=== PATIENT | female | born 1945 | race Caucasian/White ===

== ENCOUNTER 2016-08-10 04:50 | Day surgery (SDC) | payer MEDICARE, OTHER ==
[2016-08-06 10:44] LABS: HEMATOCRIT 37.8 % (36.0-48.0); MCHC 31.7 g/dL (31.0-37.0); MCV 94.5 fL (80.0-100.0); RDW 14.9 % (11.5-14.5)
[~2016-08-10] VITALS: Ht 165.1 cm; Wt 76.2 kg
[~2016-08-10 04:50] MED LIST: ASPIRIN EC81 M1 PO; ATIVAN0.5 MG PO; CELEBREX200 MG PO; DOC-Q-LACE100 MG; EXFORGE 5-320 M1 TAB PO; FOLIC ACID1 MG PO; FUROSEMIDE20 MG PO; LEVOXYL25 MCG PO; LOVAZA1 G PO; METHOTREXATE2.5 MG PO; NEXIUM40 MG PO; PAXIL20 MG PO; SPIRIVA18 MCG; SPIRIVA18 MCG INH; SYMBICORT 16010.2 GM INH; VENTOLIN HFA18 GM INH; VITAMIN D250000 UNIT PO; ZETIA10 MG PO
[2016-08-10 05:45] VITALS: BP 116/59; Ht 165.1 cm; Wt 76.2 kg
[2016-08-10] MEDS ORDERED: HYDROCODONE-APA1 TAB PO (07:34)
--- NOTE | 2016-08-10 08:40 | NUR ---
XRAY HERE TO DO SCAN OF CHEST OFF UNIT PER BED
--- NOTE | 2016-08-10 09:46 | NUR ---
0845 IV DC WITH CATHER TIP INTACT
--- NOTE | 2016-08-19 08:03 | OP ---
PATIENT NAME: Conor CARRILLO JANUARY MEDICAL RECORD: [id number] :44 LOCATION:D[facility] ADMISSION DATE: SURGEON: MARGUERITE TOMLINSON MD DATE OF OPERATION: 08/10/2016 PREOPERATIVE DIAGNOSIS: Left knee medial meniscus tear. POSTOPERATIVE DIAGNOSES: Left knee medial meniscus tear plus lateral meniscus tear, plus grade III-IV chondromalacia patellofemoral joint, medial femoral condyle and medial tibial plateau. PROCEDURE PERFORMED: Left knee partial medial and lateral meniscectomy. SURGEON: Alvaro Tomlinson MD ANESTHESIA: General. TOURNIQUET: Not used. ESTIMATED BLOOD LOSS: Minimal. CONDITION: She tolerated the procedure well and was transferred to the recovery room in stable condition at the termination of the procedure. INDICATIONS: This is a 71-year-old female, who has been having significant pain in her knee. She has an MRI consistent with a medial meniscus tear. We had discussed options including the fact that a knee arthroscopy may not resolve her problems. She understood and wished to proceed. OPERATIVE REPORT: The patient was taken to the operating room and placed in supine position. General anesthesia was obtained. She did receive Ancef per protocol preoperatively. Her left knee was confirmed to be the correct knee, it was prepped and draped in normal fashion. Portal sites were marked and injected with 0.25% Marcaine with epinephrine. I established an anterolateral portal for the scope and inflow, superior medial portal for the outflow. The patellofemoral joint was inspected. She had a fairly significant amount of exposed bone on the backside of the patella. Coming down the medial gutter into the medial joint line, the medial joint showed fairly significant chondromalacia of the medial femoral condyle as well as off the medial tibial plateau. I established an anterior medial portal under direct visualization, probing the back area. She had a very large flap tear in the posterior medial meniscus. This was debrided with a straight biter, which was essentially back to the rim of the meniscus. This was only in the back corner. I also debrided some of the cartilage off of the condyle. At the notch, the ACL and PCL were notably intact. Laterally in a [id number] position, she did have a radial tear. This one was certainly less significant, she did have some grade II-III chondromalacia on the lateral side. No exposed bone. Once this was accomplished, I proceeded to check to make sure there were no fragments in the knee, following which she was irrigated and then closed with 3-0 Prolene injected with 5 cc of Duramorph and 10 cc of Marcaine plain. She tolerated this well, was awakened and transferred to recovery room in stable condition at termination of procedure. TRANSINT:[id number] Voice Confirmation ID: [id number] DOCUMENT ID: [id number] OPERATIVE REPORT [id number] Conor CARRILLO GORDON TROY MD at 0803 CC: [id number] DICTATION DATE: 08/10/16 0738 SURGICAL GARMENT ASSEMBLER: 08/10/16 0828 [facility] [place] 08/10/16 [id number] [place] [address]
== END 2016-08-10 09:15 | disposition home or self-care (01) ==
LOC: D.OPS 04:50 → D.PAN 07:00 → D.OPS 07:00
PROVIDERS: Anesthesiology
DX: S83.242A Other tear of medial meniscus, current injury, left knee, initial encounter (principal); S83.282A Other tear of lateral meniscus, current injury, left knee, initial encounter; M94.262 Chondromalacia, left knee

== ENCOUNTER → 2016-10-04 07:24 | Outpatient (CLI) | payer MEDICARE, OTHER ==
[2016-08-10 05:45] VITALS: BMI 28.0
[~2016-10-04 07:24] MED LIST changes: +HYDROCODONE-APA1 TAB PO
== END | disposition home or self-care (01) ==
LOC: D.CT 07:24
DX: R79.1 Abnormal coagulation profile (principal)

== ENCOUNTER → 2016-11-26 07:29 | Outpatient (CLI) | payer MEDICARE, OTHER ==
[2016-08-10 05:45] VITALS: BMI 28.0
== END ==
LOC: D.MRI 07:29
DX: M54.5 Low back pain (principal)

== ENCOUNTER 2016-12-12 20:45 | Inpatient (IN) | payer MEDICARE, OTHER ==
[~2016-12-12] VITALS: Ht 165.1 cm; Wt 81.6 kg
[2016-12-12 22:22] LABS: BASOPHILS 0.3 % (0-2); EOSINOPHILS 0.7 % (0-7); HEMATOCRIT 38.3 % (36.0-48.0); HEMOGLOBIN 11.9 g/dL (12-16); IMMATURE GRANULOCYTES 0.3 % (0-5); LYMPHOCYTES 10.3 % (15-50); MCH 26.7 pg (26.0-34.0); MCHC 31.1 g/dL (31.0-37.0); MCV 85.9 fL (80.0-100.0); MEAN PLATELET VOLUME 8.8 fL (7.4-10.4); MONOCYTES 4.2 % (2-11); NEUTROPHILS 84.2 % (40-80); PLATELET COUNT 293 10x3/uL (130-400); RBC 4.46 10x6/uL (4.00-5.40); RDW 16.2 % (11.5-14.5); WBC 14.2 10x3/uL (4.8-10.8)
[2016-12-12 22:26] LABS: APPEARANCE CLEAR (CLEAR); COLOR YELLOW (YELLOW)
[2016-12-12 22:27] LABS: BILIRUBIN NEGATIVE (NEGATIVE); GLUCOSE NEGATIVE (NEGATIVE); KETONE NEGATIVE (NEGATIVE); LEUKOCYTE ESTERASE NEGATIVE (NEGATIVE); NITRITE NEGATIVE (NEGATIVE); PROTEIN NEGATIVE (NEGATIVE); SPECIFIC GRAVITY 1.015 (1.005-1.020); UROBILINOGEN NORMAL (NORMAL)
[2016-12-12 22:36] LABS: ALBUMIN 3.9 g/dL (3.4-5.0); ALKALINE PHOSPHATASE 164 U/L (46-116); ALT (SGPT) 27 U/L (10-68); CALC OSMOLALITY 287 mosm/kg (275-300); CALCIUM 9.7 mg/dL (8.5-10.1); CARBON DIOXIDE 30.3 mmol/L (21.0-32.0); CHLORIDE - SERUM 104 mmol/L (98-107); GLUCOSE 122 mg/dL (74-106); POTASSIUM - SERUM 4.3 mmol/L (3.5-5.1); PROTEIN - SERUM 7.9 g/dL (6.4-8.2); SODIUM 143 mmol/L (136-145); UREA NITROGEN 18 mg/dL (7-18); eGFR NON AFRICAN AMERICAN 58 mL/min (90-120)
[2016-12-12 23:50] LABS: AMYLASE - SERUM 47 U/L (25-115); LIPASE 106 U/L (73-393); TROPONIN-I < 0.017 ng/mL (0.000-0.060)
[2016-12-13 04:00] VITALS: BP 159/61
[2016-12-13 04:23] VITALS: BP 132/64
--- NOTE | 2016-12-13 08:43 | NUR ---
PT SEEN AND ASSESSED. COMPLAINTS OF PAIN TO LLQ-MORHPINE GIVEN. RESING QUIETLY AFTERWARDS. ZALDIVAR NOTED. BOWEL SOUNDS NON AUDIBLE-STATES NO NAUSEA THO. NG TO RIGHT NARE DRAINING BROWNISH-RED LIQUID TO LIS. CALL LIGHT IN PLACE. BED ALARM ON FOR SAFETY
[2016-12-13 12:00] VITALS: BP 147/53
[2016-12-13 14:21] VITALS: Ht 165.1 cm; Wt 81.6 kg
[2016-12-13 16:56] VITALS: BP 118/55
[2016-12-13 18:00] VITALS: BP 140/52
--- NOTE | 2016-12-13 20:30 | NUR ---
REC'D PATIENT LYING IN BED RESTING. WILL ADMINISTER MEDS PRESCRIBED. ALERT AND ORIENTED X4. DENIES PAIN AT THIS TIME. DENIES FURTHER NEEDS AT THIS TIME. INSTRUCTED TO CALL IF NEEDED ANYTHING. BED LOW, LOCKED, CALL LIGHT IN REACH. WILL CONT TO MONITOR.
[2016-12-13 21:11] VITALS: BP 136/62
[2016-12-14 04:00] VITALS: BP 126/44
[2016-12-14 05:55] LABS: BASOPHILS 0.3 % (0-2); EOSINOPHILS 1.2 % (0-7); HEMATOCRIT 31.4 % (36.0-48.0); IMMATURE GRANULOCYTES 0.2 % (0-5); LYMPHOCYTES 16.5 % (15-50); MCH 26.5 pg (26.0-34.0); MCHC 29.6 g/dL (31.0-37.0); MONOCYTES 6.4 % (2-11); NEUTROPHILS 75.4 % (40-80); PLATELET COUNT 246 10x3/uL (130-400); RDW 16.7 % (11.5-14.5)
[2016-12-14 06:07] LABS: HEMOGLOBIN 9.3 g/dL (12-16); MCV 89.5 fL (80.0-100.0); RBC 3.51 10x6/uL (4.00-5.40); WBC 9.7 10x3/uL (4.8-10.8)
[2016-12-14 06:20] LABS: CALC OSMOLALITY 287 mosm/kg (275-300); CALCIUM 8.1 mg/dL (8.5-10.1); CARBON DIOXIDE 30.2 mmol/L (21.0-32.0); CHLORIDE - SERUM 110 mmol/L (98-107); GLUCOSE 88 mg/dL (74-106); MAGNESIUM - SERUM 2.1 mg/dL (1.8-2.4); SODIUM 144 mmol/L (136-145); UREA NITROGEN 18 mg/dL (7-18); eGFR NON AFRICAN AMERICAN 87 mL/min (90-120)
[2016-12-14 06:22] LABS: CREATININE - SERUM 0.7 mg/dL (0.6-1.3)
--- NOTE | 2016-12-14 07:50 | NUR ---
AWAKE AND ALERT. ORIENTED X3. NO C/O NAUSEA OR PAIN THIS AM. LUNGS ARE CLEAR BILATERALLY, NO COUGH NOTED. SKIN IS INTACT WITHOUT REDNESS. MIDLINE TO LEFT UPPER ARM IS PATENT WITHOUT REDNESS AT INSERTION SITE. ZALDIVAR PATENT WITH CLEAR YELLOW URINE. NG TO RIGHT NARE IS PATENT WITH DARK DISCHARGE. DENIES NEEDS. SCD'S IN PLACE.
[2016-12-14 08:52] VITALS: BP 122/53
--- NOTE | 2016-12-14 10:15 | NUR ---
AMBULATED OVER 500 FEET WITH STAFF SBA. SOME SOB NOTED WITH RETURN TO ROOM. O2 PLACED AT 2L NC.
--- NOTE | 2016-12-14 13:30 | NUR ---
ZALDIVAR D/C WITH TIP INTACT WITHOUT DIFFICULTY. CIARAN CARE PER STAFF.
[2016-12-14 13:45] VITALS: BP 134/53
--- NOTE | 2016-12-14 14:00 | NUR ---
CL LUNCH SERVED IN ROOM. CAUTIONED TO GO SLOW TO PREVENT NAUSEA.
--- NOTE | 2016-12-14 14:56 | NUR ---
ATE ABOUT HALF OF CLEAR LIQUID LUNCH WITHOUT NAUSEA OR PAIN.
[2016-12-14 16:55] VITALS: BP 113/46
--- NOTE | 2016-12-14 18:37 | NUR ---
VISITORS AT BEDSIDE. DENIES NEEDS. NO CHANGES NOTED.
--- NOTE | 2016-12-14 20:00 | NUR ---
PATIENT RESTING IN BED WITH NO SIGNS OF DISTRESS AND DENIES NEEDS AT THIS TIME. BED IN LOWEST POSITION AND CALL LIGHT WITHIN REACH. ENCOURAGED THE PATIENT TO CALL IF SHE HAS NEEDS.
[2016-12-15] VITALS: BP 143/41
[2016-12-15 06:19] LABS: BASOPHILS 0.2 % (0-2); EOSINOPHILS 2.3 % (0-7); HEMATOCRIT 29.5 % (36.0-48.0); HEMOGLOBIN 8.7 g/dL (12-16); IMMATURE GRANULOCYTES 0.5 % (0-5); LYMPHOCYTES 19.2 % (15-50); MCH 25.7 pg (26.0-34.0); MCHC 29.5 g/dL (31.0-37.0); MCV 87.3 fL (80.0-100.0); MEAN PLATELET VOLUME 9.4 fL (7.4-10.4); MONOCYTES 6.8 % (2-11); PLATELET COUNT 138 10x3/uL (130-400); RBC 3.38 10x6/uL (4.00-5.40); RDW 16.5 % (11.5-14.5); WBC 8.3 10x3/uL (4.8-10.8)
[2016-12-15 06:33] LABS: CALC OSMOLALITY 286 mosm/kg (275-300); CALCIUM 8.1 mg/dL (8.5-10.1); CARBON DIOXIDE 27.4 mmol/L (21.0-32.0); CHLORIDE - SERUM 109 mmol/L (98-107); CREATININE - SERUM 0.6 mg/dL (0.6-1.3); GLUCOSE 90 mg/dL (74-106); MAGNESIUM - SERUM 1.9 mg/dL (1.8-2.4); POTASSIUM - SERUM 3.7 mmol/L (3.5-5.1); SODIUM 144 mmol/L (136-145); eGFR NON AFRICAN AMERICAN > 90 mL/min (90-120)
[2016-12-15 06:36] LABS: UREA NITROGEN 12 mg/dL (7-18)
--- NOTE | 2016-12-15 07:42 | NUR ---
AROUSES TO VERBAL AND TACTILE STIMULATION. NO C/O AT THIS TIME. LUNGS ARE CLEAR BILATERALLY, NO COUGH NOTED. SKIN IS INTACT WITHOUT REDNESS. NG TO RIGHT NARE PATENT BUT CLAMPED AT THIS TIME. SCD'S OFF AT THIS TIME. MIDLINE TO LEFT UPPER ARM IS PATENT WTIHOUT REDNESS AT INSERTION SITE. NO NEEDS NOTED.
--- NOTE | 2016-12-15 09:00 | NUR ---
UP AT BEDSIDE PERFORMING ADL'S. NG TUBE FOUND ON FLOOR. SHE REPORTS SNEEZING AND DIDN'T KNOW IT HAD COME OUT.
[2016-12-15 09:01] VITALS: BP 145/60
--- NOTE | 2016-12-15 10:00 | NUR ---
OFF UNIT VIA WC FOR SMALL BOWEL FOLLOW THROUGH.
--- NOTE | 2016-12-15 11:30 | NUR ---
RETURNED FROM PROCEDURE. NO C/O PAIN OR DISCOMFORT AT THIS TIME.
[2016-12-15 12:00] VITALS: BP 148/51
--- NOTE | 2016-12-15 12:30 | NUR ---
REGULAR LUNCH TRAY SERVED IN ROOM. PATIENT CAUTIONED TO GO EASY ON FOOD.
--- NOTE | 2016-12-15 15:00 | NUR ---
DRESSING TO LEFT MIDLINE CHANGED USING STERILE TECHNIQUE. PATIENT HAS HAD A TOTAL OF 6 LOOSE WATERY STOOLS TODAY. WILL CONTINUE TO MONITOR.
--- NOTE | 2016-12-15 15:37 | NUR ---
NUTRITION MONITORING & EVAL CHART REVIEWED, PT DIET ADVANCED TO REG. 25% INTAKE LUNCH. WILL CONTINUE TO PROVIDE DIET, MONITOR PO INTAKE. RD FOLLOWING
--- NOTE | 2016-12-15 17:02 | NUR ---
MIDLINE D/C WITH TIP INTACT 15CM LONG. PATIENT TOLERATED WITHOUT C/O PAIN OR DISCOMFORT.
--- NOTE | 2016-12-15 17:23 | NUR ---
DISCHARGED TO HOME AMBULATORY WITH FAMILY. DISCHARGE INSTRUCTIONS GIVEN BOTH VERBALLY AND WRITTEN. ALL QUESTIONS ANSWERED. PATIENT VERBALIZED UNDERSTANDING OF SAME. NO NEW PRESCRIPTIONS NEEDED.
== END 2016-12-15 17:24 | disposition home or self-care (01) | DRG 390 ==
LOC: D.ER 20:45 → D.MS 12-13 01:36
PROVIDERS: Family Medicine; ADMIT Surgery
PROC: 0D9670Z Drainage of Stomach with Drainage Device, Via Natural or Artificial Opening (ICD-10-PCS; principal; 2016-12-13)
PROC: 0T9B70Z Drainage of Bladder with Drainage Device, Via Natural or Artificial Opening (ICD-10-PCS; 2016-12-13)
PROC: 05HC33Z Insertion of Infusion Device into Left Basilic Vein, Percutaneous Approach (ICD-10-PCS; 2016-12-13)
PROC: B54NZZA Ultrasonography of Left Upper Extremity Veins, Guidance (ICD-10-PCS; 2016-12-13)
DX: K56.60 Unspecified intestinal obstruction (principal); I10 Essential (primary) hypertension; E03.9 Hypothyroidism, unspecified; K21.9 Gastro-esophageal reflux disease without esophagitis; D63.8 Anemia in other chronic diseases classified elsewhere; J43.9 Emphysema, unspecified

== ENCOUNTER → 2018-02-21 13:54 | Outpatient (CLI) | payer MEDICARE, OTHER ==
[2016-12-13 14:21] VITALS: BMI 29.9
== END | disposition home or self-care (01) ==
LOC: D.MRI 13:54
DX: M54.2 Cervicalgia (principal); S00.93XA Contusion of unspecified part of head, initial encounter; X58.XXXA Exposure to other specified factors, initial encounter